=== PATIENT | female | born 1950 | race Caucasian/White ===

== ENCOUNTER 2020-03-03 12:24 | Emergency (ER) | payer OTHER ==
[2020-03-03] MEDS ORDERED: LACTATED RINGERS SOLUTION 1,000 ML IV STA (12:44)
[2020-03-03] MEDS ORDERED: ACETAMINOPHEN 1000 MG/100 ML VIAL (NON FORMULARY) IVPB ONE (12:44)
--- NOTE | 2020-03-03 12:45 | PDOC ---
History of Present Illness - General Chief Complaint: Urinary Problem Stated Complaint: URINARY PROBLEM BACK PROBLEM Time Seen by Provider: 03/03/20 12:42 History Source: Patient Exam Limitations: No Limitations - History of Present Illness Initial Comments: 03/03/20 12:56 HPI 69 YOF with h/o kidney stones, HTN, arthritis and appendectomy, presenting with RLQ and lower back pain x 2 days, associated with nausea, dizziness, generalized weakness and urinary frequency. pt states over the past 2 days, particularly at nighttime, she has had to urinate every 2 minutes; no dysuria, hematuria or urgency. Denies chest pain, SOB, palpitation, V, D, constipation or bloody stools, focal weakness/paresthesias, leg swelling/pain, rash. No sick contacts or travel. No new changes in medications. No suspicious food intake Allergies: None Past Medical History/PSH: appendectomy Social history: Lives with family. No tobacco, ETOH or drug use. Meds: atenolol PMD: none Review of systems Constitutional: +fever HEENT: no headache or dizziness. No congestion. No visual/hearing disturbances. CVS: no cp or syncope. Resp: no sob. No cough. Gastrointestinal: + abdominal pain, +nausea. No vomiting, diarrhea. no constipation or bloody tools. Genitourinary: no urgency, dysuria or hematuria. +urinary frequency.. MUSCULOSKELETAL: No joint pain and swelling. +back pain. SKIN: no redness or skin changes, no discharge, no rash. No wounds. Hematologic: no easy bruising/bleeding. NEUROLOGIC: No headache, dizziness, LOC or altered mental status. No weakness, numbness or tingling. Psych: no anxiety or depression Allergic/Immunologic: no allergies All other systems reviewed and negative, or as documented in HPI. Physical exam General: awake and alert, NAD. HEENT: NCAT, PERRL, EOMI, clear conjunctiva, anicteric, moist mucus membranes, clear oropharynx, no oral lesions.. Neck: neck supple, FROM Resp: CTAB, normal and even respirations, no respiratory distress CVS: RRR, no murmurs, 2+ peripheral pulses throughout, no peripheral edema Abdomen: soft, obese. +RLQ TTP, no rebound or guarding. no CVAT Back: nontender, normal inspection and ROM MSK: no edema, LEE x4, ROM intact. No clubbing or cyanosis. normal bulk and tone. Extremities: no calf tenderness Neuro: alert, oriented appropriately; no focal neurologic deficits Psych: Calm and cooperative Skin: warm and well perfused, cap refill <2 sec, normal color, no rash or skin discoloration. Past History - Medical History Allergies/Adverse Reactions: Allergies Allergy/AdvReac Type Severity Reaction Status Date / Time No Known Allergies Allergy Verified 03/03/20 12:37 Home Medications: Ambulatory Orders Atenolol [Tenormin -] 25 mg PO DAILY 03/03/20 Ondansetron [Zofran *Odt*] 4 mg SL TID PRN #9 od.tablet 03/03/20 Sulfamethoxazole/Trimethoprim [Bactrim Ds -] 1 tab PO BID 10 Days #20 tablet 03/03/20 hydrOXYzine PAMOATE [Vistaril -] 25 mg PO PRN 03/03/20 HTN: Yes Kidney Stones: Yes (1980S) - Surgical History Appendectomy: Yes Cholecystectomy: Yes - Reproductive History Therapeutic (s) & number: No - Immunization History Td Vaccination: No Immunization Up to Date: Yes - Psycho-Social/Smoking History Smoking History: Never smoked Have you smoked in the past 12 months: No ED Treatment Course - LABORATORY CBC & Chemistry Diagram: 03/03/20 13:00 03/03/20 13:00 Medical Decision Making - Medical Decision Making 03/03/20 12:56 Vital Signs Temp Pulse Resp BP Pulse Ox 100.4 F H 93 H 18 158/89 98 03/03/20 12:36 03/03/20 12:36 03/03/20 12:36 03/03/20 12:36 03/03/20 12:36 DDx abdominal pain: Renal colic, biliary colic, metabolic/electrolyte derangements. GERD, PUD, esophageal spasm, pancreatitis, hepatitis, constipation, colitis, gastroenteritis, cholecystitis, UTI, pyelonephritis, ileus, SBO, medication side effect, hernia, appendicitis, diverticulitis, mesenteric ischemia. msk strain, mesenteric adenitis, psoas abscess. vitals reviewed, +febrile here. normal HR, mildly hypertensive unlikely appy due to appendectomy no recent procedures considering more likely source labs and lytes lactic normal UA_with some wbcs and rbcs, trace leuk esterase. given IVF hydration with LR, tylenol for fever/pain, zofran, reassess CT neg for acute pathology, obstruction or stones. s/p appy. no e/o infection rpt vs improved, fever down. nontoxic appearing. On repeat examination prior to discharge, the patient has a soft abdomen with no peritoneal findings. The patient was able to tolerate oral intake. The patient was advised that even though there is no evidence of a surgical emergency at this time, sometimes this is not visible on CT imaging or in the labs early in a disease course and that if there is additional pain they are to return for repeat evaluation. The patient stated understanding of this, has decision making capacity and is discharged in stable condition. The patient was instructed to return to the emergency department for re-evaluation in 8-12 hours and sooner if they feel worse in any way. 03/03/20 15:13 03/03/20 15:14 03/03/20 16:59 03/03/20 17:00 Discharge - Discharge Information Problems reviewed: Yes Clinical Impression/Diagnosis: UTI (urinary tract infection) Qualifiers: Urinary tract infection type: site unspecified Hematuria presence: with hematu liliana Qualified Code(s): N39.0 - Urinary tract infection, site not specified; R31.9 - Hematuria, unspecified Back pain Qualifiers: Back pain location: low back pain Chronicity: acute Back pain laterality: unspecified Sciatica presence: unspecified whether sciatica present Qualified Code(s): M54.5 - Low back pain Abdominal pain Qualifiers: Abdominal location: unspecified location Qualified Code(s): R10.9 - Unspecified abdominal pain Condition: Stable Disposition: HOME - Admission No - Additional Discharge Information Prescriptions: Sulfamethoxazole/Trimethoprim [Bactrim Ds -] 1 tab PO BID 10 Days #20 tablet Ondansetron [Zofran *Odt*] 4 mg SL TID PRN #9 od.tablet PRN Reason: nausea vomiting - Follow up/Referral Referrals: [facility] [place] [Provider Group] [facility] [Provider Group] - Patient Discharge Instructions Patient Printed Discharge Instructions: DI for Low Back Pain, DI for Urinary Tract Infection (UTI), DI for Abdominal Pain-Adult Additional Instructions: 1) Please follow-up with your primary care doctor in the next 1-2 days. Please call tomorrow for for any urgent issues. referrals for primary care have been provided 2) You were given a copy of the tests performed today. Please bring the results with you and review them with your primary care doctor. Your laboratory / im aging results were normal, you may have a urinary tract infection/early kidney infection. please follow up on your urine cultures take your antibiotics as instructed 3) If you have any worsening of symptoms or any other concerns please return to the ED immediately. Return if worsening symptoms including fevers, headache, vomiting, visual or hearing disturbances, abdominal pain, chest pain, shortness of breath, syncope, dehydration, inability to take things by mouth/vomiting, altered mental status, or worsening concerning symptoms. Please return to the emergency department immediately should you feel worse in any way or have any of the following symptoms: increasing or different abdominal pain, persistent vomiting, fevers or shaking chills. Please return to the emergency department for a recheck in 8-12 hours if the pain is persistent or worse so we can re-evaluate you and ensure that you are not developing a problem that would require surgery or hospitalization. 4) Please continue taking your home medications as directed. your medications on discharge include Bactrim twice a day x 10 days to treat the urinary tract infection/early kidney infection . side effects may include upset stomach, abdominal pain, vomiting, or diarrhea. do not drink alcohol with your medications. zofran three times a day as needed to help with nausea and help you take by mouth. you can also take tylenol as needed for fever/pain, every 6 hours as needed Stay well hydrated and rest adequately. Make an appointment. If you cannot follow-up with your primary care doctor please return to the ED - Post Discharge Activity
[2020-03-03] MEDS ORDERED: ACETAMINOPHEN INJECTION 100 ML IVPB ONE (12:51)
[2020-03-03] MEDS ORDERED: ONDANSETRON 4 MG/2 ML VIAL ONE (12:51)
[2020-03-03 12:58] VITALS: BMI 34.3
[2020-03-03] MEDS ORDERED: ONDANSETRON 4 MG/2 ML VIAL IVPUSH ONE (13:15)
[2020-03-03 13:24] LABS: BASO % 0.5 % (0-2.0); HEMATOCRIT 42.7 % (32.4-45.2); HEMOGLOBIN 14.5 GM/dl (10.7-15.3); LYMPH % 9.1 % (8-40); MCH 28.3 pg (25.7-33.7); MEAN PLT VOLUME 7.9 fl (7.5-11.1); MONO % 1.1 % (3.8-10.2); NEUT % 89.3 % (42.8-82.8); PLATELET COUNT 185 K/MM3 (134-434); RBC 5.14 M/mm3 (3.60-5.2); RDW 12.5 % (11.6-15.6); WHITE BLOOD COUNT 5.5 K/mm3 (4.0-10.8)
[2020-03-03 13:26] LABS: ALBUMIN 4.1 g/dl (3.4-5.0); BILIRUBIN,TOTAL 1.2 mg/dl (0.2-1); CALCIUM 8.9 mg/dl (8.5-10); CREATININE 0.9 mg/dl (0.55-1.3); POTASSIUM 4.5 mmol/L (3.5-5.1); TOT PROT 7.7 g/dl (6.4-8.2)
[2020-03-03 13:49] LABS: EPITHELIAL CELLS MODERATE /hpf
[2020-03-03 13:50] LABS: AMORP URATES 1+ /hpf (NONE SEEN)
[2020-03-03] MEDS ORDERED: morphine CARPU-JECT 4 MG/1 ML DISP.SYRIN IVPUSH ONE (14:18)
[2020-03-03] MEDS ORDERED: morphine SULFATE 4 MG/ML VIAL ONE (14:35)
[2020-03-03 14:46] VITALS: BP 106/66; PULSE 77
[2020-03-03] MEDS ORDERED: SULFAMETHOXAZOLE/TRIMETHOPRIM 800MG/160MG D.S. TABLET PO ONE (15:14)
[2020-03-03 15:19] VITALS: TEMP 98.9
[2020-03-03] MEDS ORDERED: SULFAMETHOXAZOLE/TRIMETHOPRIM 800MG/160MG D.S. TABLET ONE (15:21)
[2020-03-04] MEDS ORDERED: ONDANSETRON 4 MG/2 ML VIAL IVPUSH ONE (12:44)
== END 2020-03-03 15:35 | disposition home or self-care (01) ==
LOC: FER 12:24
PROC: 3E033GC Introduction of Other Therapeutic Substance into Peripheral Vein, Percutaneous Approach (ICD-10-PCS; principal; 2020-03-03)
PROC: 3E0337Z Introduction of Electrolytic and Water Balance Substance into Peripheral Vein, Percutaneous Approach (ICD-10-PCS; principal; 2020-03-03)
DX: N39.0 Urinary tract infection, site not specified (principal)
CPT/HCPCS: 36415; 74176-TC; 80053; 81003; 81015; 83605; 85025; 87086; 99285-25; J0131

== ENCOUNTER 2022-01-13 15:10 | Emergency (ER) | payer OTHER ==
[2022-01-13 15:22] VITALS: TEMP 98; BMI 34.3
[2022-01-13] MEDS ORDERED: NAPROXEN 500 MG TABLET PO ONE (16:13)
[2022-01-13] MEDS ORDERED: NAPROXEN 500 MG TABLET ONE (16:14)
[2022-01-13 17:05] LABS: HEMATOCRIT 40.2 % (32.4-45.2); HEMOGLOBIN 14.2 G/dL (10.7-15.3); MCH 29.2 pg (25.7-33.7); MCHC 35.2 g/dl (32.0-36.0); MEAN CELL VOLUME 82.9 fl (80-96); PLATELET COUNT 271.6 10^3/uL (134-434); RBC 4.85 10^6/uL (3.60-5.2); RDW 14.2 % (11.6-15.6); WHITE BLOOD COUNT 8.3 10^3/uL (4.0-10.8)
[2022-01-13 17:11] LABS: ALBUMIN 4.4 g/dl (3.4-5.0); BILIRUBIN,TOTAL 0.5 mg/dl (0.2-1); CALCIUM 9.8 mg/dl (8.5-10); CREATININE 0.7 mg/dl (0.55-1.3); TOT PROT 7.6 g/dl (6.4-8.2)
[2022-01-13 18:17] VITALS: BP 159/77; PULSE 68
[2022-01-13 18:24] LABS: PLATELET ESTIMATE ADEQUATE
== END 2022-01-13 18:10 | disposition home or self-care (01) ==
LOC: FER 15:10
DX: M25.512 Pain in left shoulder (principal)
CPT/HCPCS: 36415; 80053; 84484; 85027; 86618; 93005; 99284-25